=== PATIENT | male | born 1990 | race Caucasian/White ===

== ENCOUNTER 2022-04-22 13:29 | Emergency (ER) | payer OTHER ==
[2022-04-22] MEDS ORDERED: ALBUTEROL SO4 0.083% IH SOL 2.5 MG/3 ML VIAL.NEB. NEB ONE (13:36)
[2022-04-22] MEDS ORDERED: FAMOTIDINE 20 MG/50 ML IVPB 20 MG/50 ML MG IVPB ONE (13:36)
[2022-04-22] MEDS ORDERED: methylPREDNISolone NA SUCC 125 MG/2 ML VIAL IVPUSH ONE (13:36)
[2022-04-22] MEDS ORDERED: SODIUM CHLORIDE 0.9% 500 ML INFUS.BAG IV ONE (13:36)
[2022-04-22 14:50] VITALS: RESP 20; TEMP 98.7; BMI 31.1
[2022-04-22 14:58] VITALS: BP 140/70; PULSE 70
== END 2022-04-22 14:58 | disposition home or self-care (01) ==
LOC: JER 13:29
PROC: 3E033NZ Introduction of Analgesics, Hypnotics, Sedatives into Peripheral Vein, Percutaneous Approach (ICD-10-PCS; principal; 2022-04-22)
PROC: 3E033GC Introduction of Other Therapeutic Substance into Peripheral Vein, Percutaneous Approach (ICD-10-PCS; 2022-04-22)
PROC: 3E0F7GC Introduction of Other Therapeutic Substance into Respiratory Tract, Via Natural or Artificial Opening (ICD-10-PCS; 2022-04-22)
PROC: 3E033GC Introduction of Other Therapeutic Substance into Peripheral Vein, Percutaneous Approach (ICD-10-PCS; 2022-04-22)
DX: T78.40XA Allergy, unspecified, initial encounter (principal)
CPT/HCPCS: 99285-25